=== PATIENT | male | born 1935 ===

== ENCOUNTER 2017-07-09 05:35 | Day surgery (SDC) | payer OTHER | END 2017-07-09 11:35 | disposition home or self-care (01) | LOC: AMB-ENDOS 05:35 | DX: D12.4 Benign neoplasm of descending colon (principal); K64.8 Other hemorrhoids; K57.30 Diverticulosis of large intestine without perforation or abscess without bleeding; Z85.048 Personal history of other malignant neoplasm of rectum, rectosigmoid junction, and anus ==